=== PATIENT | female | born 1995 | race Caucasian/White ===

== ENCOUNTER 2016-09-04 01:24 | Emergency (ER) | payer MEDICAID, OTHER ==
[2016-09-04] MEDS ORDERED: CEPHALEXIN 250 MG CAPSULE PO STA (01:49)
[2016-09-04] MEDS ORDERED: ONDANSETRON ODT 4 MG TABLET TL STA (01:49)
[2016-09-04] MEDS ORDERED: HYDROcod/ACETAM 5/325 MG TABLET PO STA (01:49)
[2016-09-04] MEDS ORDERED: HYDROcod/ACET 5/325 Prepack 6 PO ONE ×2 (01:49→01:51)
[2016-09-04] MEDS ORDERED: IBUPROFEN 600 MG TABLET PO STA (01:49)
[2016-09-04] MEDS ORDERED: HYDROcod/ACETAM 5/325 MG TABLET ONE (01:50)
[2016-09-04] MEDS ORDERED: ONDANSETRON ODT 4 MG TABLET ONE (01:51)
[2016-09-04] MEDS ORDERED: IBUPROFEN 600 MG TABLET PO ONE (01:51)
[2016-09-04] MEDS ORDERED: CEPHALEXIN 250 MG CAPSULE PO ONE (01:51)
[2016-09-04] MEDS ORDERED: ONDANSETRON ODT 4 MG Prepack 2 TL ONE (01:57)
== END 2016-09-04 02:29 | disposition home or self-care (01) ==
DX: J02.9 Acute pharyngitis, unspecified (principal); O99.511 Diseases of the respiratory system complicating pregnancy, first trimester; Z3A.01 Less than 8 weeks gestation of pregnancy
CPT/HCPCS: 87070; 87430; 99283; 99284; A9270; Q0162

== ENCOUNTER 2016-09-22 14:00 | Outpatient (CLI) | payer MEDICAID | END 2016-09-22 14:01 | disposition home or self-care (01) | DX: Z11.3 Encounter for screening for infections with a predominantly sexual mode of transmission (principal) ==

== ENCOUNTER 2016-10-04 14:35 | Emergency (ER) | payer MEDICAID ==
--- NOTE | 2016-10-04 14:52 | ED Physician Documentation ---
PD HPI ABD PAIN - Stated complaint Stated Complaint: FEMALE /10 WEEKS - Chief complaint Chief Complaint: Abd Pain - History obtained from History obtained from: Patient - History of Present Illness Timing - onset: Other ( at 10 weeks gestation, blood type unknown, had spotting followed by a few larger gushes of bleeding today but no cramping. No UTI symptoms.) - Additional information Additional information: Also a few days R ear pain without loss of hearing,drainage or URI sx. Review of Systems Constitutional: reports: Reviewed and negative Cardiac: denies: Chest pain / pressure, Palpitations Respiratory: denies: Dyspnea, Cough GI: denies: Abdominal Pain PD PAST MEDICAL HISTORY - Past Medical History Respiratory: None Endocrine/Autoimmune: None - Past Surgical History Past Surgical History: No - Present Medications Home Medications: Ambulatory Orders Medication Instructions Recorded Confirmed Neomycin/Polymyx/Hc Otic Drops 4 drops OT TID 7 Days 10/04/16 [Cortisporin Ear Susp] - Allergies Allergies/Adverse Reactions: Allergies Allergy/AdvReac Type Severity Reaction Status Date / Time No Known Drug Allergies Allergy Verified 10/04/16 14:43 - Social History Does the pt smoke?: No Smoking Status: Never smoker Does the pt drink ETOH?: No Does the pt have substance abuse?: No - Immunizations Immunizations are current?: Yes - POLST Patient has POLST: No PD ED PE NORMAL - Vitals Vital signs reviewed: Yes - General General: Alert and oriented X 3, No acute distress - HEENT HEENT: Other (Mild R otitis externa) - Abdomen Abdomen: Normal bowel sounds, Soft, Non tender - Female Female : Other (Bedside ultrasound demonstrates a single live intrauterine with heart rate 170 and positive motion.) - Extremities Extremities: No edema, No calf tenderness / cord - Neuro Neuro: Alert and oriented X 3, Normal speech - Psych Psych: Normal mood, Normal affect Results - Vitals Vitals: Vital Signs - 24 hr 10/04/16 14:40 Temperature 36.9 C Heart Rate 108 H Respiratory 22 Rate Blood Pressure 129/75 O2 Saturation 100 Oxygen O2 Source Room air - Labs Labs: Laboratory Tests 10/04/16 10/04/16 13:54 14:54 Urine Color YELLOW Urine Clarity HAZY Urine pH 5.5 Ur Specific [place] 1.025 Urine Protein NEGATIVE Urine Glucose (UA) NEGATIVE Urine Ketones 40 H Urine Occult Blood LARGE H Urine Nitrite NEGATIVE Urine Bilirubin NEGATIVE Urine Urobilinogen 0.2 (NORMAL) Ur Leukocyte Esterase NEGATIVE Urine RBC 6-10 H Urine WBC 6-10 H Ur Squamous Epith Cells MANY Squamous H Urine Bacteria Many H Ur Microscopic Review INDICATED Urine Culture Comments NOT INDICATED Blood Type O POSITIVE PD MEDICAL DECISION MAKING - ED course ED course: She presents with threatened but has reassuring bedside ultrasound. Blood type checked and O positive. Departure - Departure Disposition: Home, Self Care Clinical Impression: Vaginal bleeding before 22 weeks gestation Otitis externa Qualifiers: Otitis externa type: swimmer's ear Laterality: right Chronicity: acute Qualified Code(s): H60.331 - Swimmer's ear, right ear Condition: Good Record reviewed to determine appropriate education?: Yes Instructions: ED Miscarriage Poss Follow-Up: Oleg Pozo MD [Provider Admit Priv/Credential] - Within 1 week Prescriptions: Neomycin/Polymyx/Hc Otic Drops [Cortisporin Ear Susp] 4 drops OT TID 7 Days
[2016-10-04 15:15] LABS: BILIRUBIN,URINE NEGATIVE (NEGATIVE); PH,URINE 5.5 PH (5.0-7.5)
[2016-10-04 15:17] LABS: UA w/ MICROSCOPIC CHARGE YES
[2016-10-04 15:29] LABS: UR CULTURE IF IND NOT INDICATED
[2016-10-04 16:12] VITALS: BP 124/80
== END 2016-10-04 16:12 | disposition home or self-care (01) ==
LOC: ED 14:35
DX: O20.9 Hemorrhage in early pregnancy, unspecified (principal); Z3A.10 10 weeks gestation of pregnancy; H60.331 Swimmer's ear, right ear
CPT/HCPCS: 81001; 81003; 86900; 86901; 87086; 99283; 99284

== ENCOUNTER 2016-11-12 08:44 | Emergency (ER) | payer MEDICAID ==
[2016-11-12 08:50] VITALS: BP 126/78
--- NOTE | 2016-11-12 09:57 | ED Physician Documentation ---
PD HPI FEMALE - Stated complaint Stated Complaint: FEMALE /16 WKS PREG - Chief complaint Chief Complaint: Abd Pain - History obtained from History obtained from: Patient, Family - History of Present Illness Timing - onset: How many days ago (2) Timing - duration: Days (2) Timing - details: Gradual onset, Still present, Waxing and waning Associated symptoms: Pelvic pain, Vaginal bleeding Contributing factors: (16 wks) Similar symptoms before: Diagnosis (1st trimester spotting) Recently seen: Clinic (The patient has been receiving routine care and she has had ultrasound this ) - Additional information Additional information: 21 y/o female 16 wks has developed cramping and spotting mild and she has come to the ED as her OB has will not be able to see her for another 4 days. Review of Systems Constitutional: denies: Fever, Chills, Myalgias Eyes: denies: Decreased vision Ears: denies: Ear pain Nose: denies: Congestion Throat: denies: Sore throat Cardiac: denies: Chest pain / pressure Respiratory: denies: Cough GI: denies: Abdominal Pain, Nausea, Vomiting, Constipation, Diarrhea : reports: Vaginal bleeding (spotting mild), Other (cramping pelvic pain). denies: Dysuria, Frequency, Discharge Skin: denies: Rash Musculoskeletal: denies: Neck pain, Back pain, Extremity pain Neurologic: denies: Generalized weakness, Focal weakness, Numbness PD PAST MEDICAL HISTORY - Past Medical History Respiratory: None Endocrine/Autoimmune: None - Past Surgical History Past Surgical History: No - Present Medications Home Medications: Ambulatory Orders Medication Instructions Recorded Confirmed Pnv No.122/Iron/Folic Acid 1 tab PO DAILY 11/12/16 11/12/16 [ Multi Tablet] - Allergies Allergies/Adverse Reactions: Allergies Allergy/AdvReac Type Severity Reaction Status Date / Time No Known Drug Allergies Allergy Verified 10/04/16 14:43 - Social History Does the pt smoke?: No Smoking Status: Never smoker Does the pt drink ETOH?: No Does the pt have substance abuse?: No - Immunizations Immunizations are current?: Yes - POLST Patient has POLST: No PD ED PE NORMAL - Vitals Vital signs reviewed: Yes (normal ) - General General: Alert and oriented X 3, No acute distress, Well developed/nourished - HEENT HEENT: Atraumatic, PERRL, EOMI - Neck Neck: Supple, no meningeal sign - Cardiac Cardiac: RRR, No murmur - Respiratory Respiratory: No respiratory distress, Clear bilaterally - Abdomen Abdomen: Soft, Non tender - Back Back: No CVA TTP, No spinal TTP - Derm Derm: Normal color, No rash - Extremities Extremities: No deformity, No edema - Neuro Neuro: Alert and oriented X 3, No motor deficit, No sensory deficit, Normal speech - Psych Psych: Normal mood, Normal affect Results - Vitals Vitals: Vital Signs - 24 hr 11/12/16 08:47 Temperature 36.4 C L Heart Rate 80 Respiratory 18 Rate Blood Pressure 126/78 O2 Saturation 99 Oxygen O2 Source Room air - Labs Labs: Laboratory Tests 11/12/16 09:48 Urine Color DARK YELLOW Urine Clarity CLEAR Urine pH 6.5 Ur Specific [place] 1.020 Urine Protein NEGATIVE Urine Glucose (UA) NEGATIVE Urine Ketones NEGATIVE Urine Occult Blood TRACE-INTA Urine Nitrite NEGATIVE Urine Bilirubin NEGATIVE Urine Urobilinogen 0.2 (NORMAL) Ur Leukocyte Esterase NEGATIVE Ur Microscopic Review NOT INDICATED Urine Culture Comments NOT INDICATED Procedures - Bedside sono Bedside sono by EMP: with the use of bedside ultrasound the fetus is imaged and appears viable with BPD indicating gestational age of 16wks 3 days and FHT of 144 with active fetus and no obvious abruption. PD MEDICAL DECISION MAKING - ED course Complexity details: reviewed results, re-evaluated patient, considered differential, d/w patient, d/w family ED course: 21 y/o female with end of 1st trimester spotting. Departure - Departure Disposition: 01 Home, Self Care Clinical Impression: Vaginal bleeding before 22 weeks gestation Condition: Stable Instructions: ED Miscarriage Poss Follow-Up: Oleg Baldwin MD [Physician No Access] -
[2016-11-12 09:58] LABS: BILIRUBIN,URINE NEGATIVE (NEGATIVE); PH,URINE 6.5 PH (5.0-7.5)
[2016-11-12 10:04] LABS: UA CHARGE (STRIP ONLY) YES; UR CULTURE IF IND NOT INDICATED
== END 2016-11-12 10:35 | disposition home or self-care (01) ==
LOC: ED 08:44
DX: O20.9 Hemorrhage in early pregnancy, unspecified (principal); Z3A.16 16 weeks gestation of pregnancy
CPT/HCPCS: 81001; 81003; 87086; 99283; 99284